=== PATIENT | male | born 2000 | race Caucasian/White ===

== ENCOUNTER 2022-06-06 17:25 | Inpatient (IN) | payer BC ==
[2022-06-06] MEDS ORDERED: Sodium Chloride 0.9% 1,000 ML IV ONE (17:31)
[2022-06-06] MEDS ORDERED: Sodium Chloride 0.9% 10 ML Syringe FLUSH PRN (17:31)
[2022-06-06] MEDS ORDERED: Cefepime 2 GM in Premix Bag 50 BAG IV ONE (17:31)
[2022-06-06] MEDS ORDERED: Sodium Chloride 0.9% 2.5 ML Syringe FLUSH PRN (17:31)
[2022-06-06] MEDS ORDERED: VANCOmycin 2 GM/400 ML 2 GM in Premix Bag 1 BAG IV ONE (18:00)
[2022-06-06] MEDS ORDERED: HYDROmorphone 1 MG/ML Syringe IVPUSH ONE (18:05)
[2022-06-06] MEDS ORDERED: Ketorolac 60 MG/2 ML SDV IM ONE (18:05)
[2022-06-06] MEDS ORDERED: Ondansetron 4 MG/2 ML SDV IVPUSH ONE (18:05)
[2022-06-06] MEDS ORDERED: Ketorolac 30 MG/ML SDV IVPUSH ONE (18:08)
[2022-06-06] MEDS ORDERED: Ketorolac 30 MG/ML SDV ONE (18:09)
[2022-06-06 18:38] LABS: CARBON DIOXIDE,CO2 21.4 mmol/L (21.0-32.0); POTASSIUM,K 3.5 mmol/L (3.5-5.1)
[2022-06-06 20:24] LABS: CORONAVIRUS COVID-19 NAA NEGATIVE (NEGATIVE); INFLUENZA A NAA NEGATIVE (NEGATIVE); INFLUENZA B NAA NEGATIVE (NEGATIVE)
[2022-06-06] MEDS: Acetaminophen 325 MG Tab PO PRN (22:49)
[2022-06-06] MEDS: oxyCODONE 5 MG Tab PO PRN (22:50)
[2022-06-06] MEDS: Piperacillin/Tazobactam 3.375 GM in Sodium Chloride 0.9% 50 ML IV SCH (22:55)
[2022-06-07] MEDS: Pregabalin 75 MG Cap PO SCH ×3 (00:24→20:00)
[2022-06-07] MEDS: Amitriptyline 25 MG Tab PO SCH ×2 (00:24→20:00)
[2022-06-07] MEDS: Oxybutynin 5 MG Tab PO SCH ×3 (00:25→20:00)
[2022-06-07] MEDS: Morphine 2 MG/ML SYRINGE IVPUSH PRN ×6 (00:25→19:50)
[2022-06-07] MEDS: Piperacillin/Tazobactam 3.375 GM in Sodium Chloride 0.9% 50 ML IV SCH ×4 (03:51→21:53)
[2022-06-07 06:31] LABS: CARBON DIOXIDE,CO2 21.6 mmol/L (21.0-32.0); POTASSIUM,K 3.7 mmol/L (3.5-5.1)
[2022-06-07] MEDS: Acetaminophen 325 MG Tab PO PRN ×2 (08:46→19:35)
[2022-06-07] MEDS: Ciprofloxacin/Dexamethasone 0.3-0.1% Otic Susp 7.5 ML Bottle EARLF SCH ×2 (11:37→20:01)
[2022-06-07] MEDS: Enoxaparin 40 MG/0.4 ML Syringe SUBCUT SCH (12:19)
[2022-06-07] MEDS ORDERED: Acetaminophen 500 MG Tab PO ONE (12:27)
[2022-06-08] MEDS: Acetaminophen 325 MG Tab PO PRN (02:11)
[2022-06-08] MEDS: oxyCODONE 5 MG Tab PO PRN (02:14)
[2022-06-08] MEDS: Piperacillin/Tazobactam 3.375 GM in Sodium Chloride 0.9% 50 ML IV SCH ×2 (03:59→10:30)
[2022-06-08 06:28] LABS: CARBON DIOXIDE,CO2 25.1 mmol/L (21.0-32.0); POTASSIUM,K 3.7 mmol/L (3.5-5.1)
[2022-06-08] MEDS ORDERED: Polyethylene Glycol 3350 Powder 17 GM Packet PO ONE (08:05)
[2022-06-08] MEDS: Ciprofloxacin/Dexamethasone 0.3-0.1% Otic Susp 7.5 ML Bottle EARLF SCH (08:40)
[2022-06-08] MEDS: Oxybutynin 5 MG Tab PO SCH (08:41)
[2022-06-08] MEDS: Pregabalin 75 MG Cap PO SCH (08:41)
[2022-06-08] MEDS: Enoxaparin 40 MG/0.4 ML Syringe SUBCUT SCH (10:38)
[2022-06-08] MEDS ORDERED: Acetaminophen/Codeine 300-30 MG Tab PO ONE (16:35)
== END 2022-06-08 18:44 | disposition home or self-care (01) | DRG 463 ==
LOC: MW.ED 17:25 → MW.MS 19:44 → OBSVTOIN 06-07 09:04 → MW.MS 06-07 12:23
PROVIDERS: ADMIT Internal Medicine; ATTEND Internal Medicine
DX: N13.6 Pyonephrosis (principal); N17.9 Acute kidney failure, unspecified; H92.02 Otalgia, left ear; G83.9 Paralytic syndrome, unspecified; N31.9 Neuromuscular dysfunction of bladder, unspecified; N18.9 Chronic kidney disease, unspecified; Z20.822 Contact with and (suspected) exposure to COVID-19; D63.1 Anemia in chronic kidney disease; N13.9 Obstructive and reflux uropathy, unspecified; Z87.891 Personal history of nicotine dependence; Z79.899 Other long term (current) drug therapy
CPT/HCPCS: 0240U; 36415; 51702; 70486; 70486-26; 71045; 71045-26; 74176; 74176-26; 80048; 80053; 80202; 81001; 83605; 85025; 87040; 87086; 87088; 87186; 93005; 97161-GP; A9270-GY; J0692; J1170; J1885; J2270; J2405; J2543; J3370; J3490; J7030; J7050

== ENCOUNTER 2022-06-09 10:45 | Emergency (ER) | payer BC | END 2022-06-09 12:50 | disposition home or self-care (01) | LOC: MW.ED 10:45 | DX: R32 Unspecified urinary incontinence (principal); N18.9 Chronic kidney disease, unspecified; Z79.899 Other long term (current) drug therapy | CPT/HCPCS: 51702; 99283 ==

== ENCOUNTER 2022-07-25 20:11 | Emergency (ER) | payer OTHER, BC ==
[2022-07-25] MEDS ORDERED: Acetaminophen 500 MG Tab PO ONE (20:30)
== END 2022-07-25 21:52 | disposition home or self-care (01) ==
LOC: MW.ED 20:11
DX: M54.2 Cervicalgia (principal); R51.9 Headache, unspecified; Z79.899 Other long term (current) drug therapy; V49.40XA Driver injured in collision with unspecified motor vehicles in traffic accident, initial encounter; Y92.410 Unspecified street and highway as the place of occurrence of the external cause
CPT/HCPCS: 70450; 72125; 99284; A9270

== ENCOUNTER 2022-09-19 17:11 | Emergency (ER) | payer OTHER, BC | END 2022-09-19 19:12 | disposition home or self-care (01) | LOC: MW.ED 17:11 | DX: S92.351A Displaced fracture of fifth metatarsal bone, right foot, initial encounter for closed fracture (principal); N18.9 Chronic kidney disease, unspecified; Z79.899 Other long term (current) drug therapy; W01.0XXA Fall on same level from slipping, tripping and stumbling without subsequent striking against object, initial encounter; Y92.89 Other specified places as the place of occurrence of the external cause; Y99.0 Civilian activity done for income or pay | CPT/HCPCS: 29515; 73610-26-RT; 73610-RT; 73630-26-RT; 73630-RT; 99283 ==

== ENCOUNTER 2023-10-16 19:26 | Emergency (ER) | payer BC ==
[2023-10-16] MEDS: Acetaminophen 325 MG Tab PO ONE (20:17)
[2023-10-16] MEDS: Ibuprofen 600 MG Tab PO ONE (20:17)
[2023-10-16 20:35] LABS: BASOPHILS ABSOLUTE AUTO 0.05 K/uL (0.00-0.20); BASOPHILS PERCENT AUTO 0.4 % (0.0-1.0); EOSINOPHILS ABSOLUTE AUTO 0.16 K/uL (0.00-0.45); EOSINOPHILS PERCENT AUTO 1.2 % (0.0-6.0); HEMOGLOBIN 12.2 g/dL (14.0-18.0); IMMATURE GRAN ABSOLUTE AUTO 0.07 K/uL (0.00-0.05); IMMATURE GRAN PERCENT AUTO 0.5 % (0.0-0.4); MEAN CORPUSCULAR HEMOGLOBIN 29.1 pg (28.0-32.0); MEAN CORPUSCULAR HGB CONC 34.9 g/dL (32.0-36.0); MEAN CORPUSCULAR VOLUME 83.5 fL (83.0-99.0); MEAN PLATELET VOLUME 12.1 fL (9.4-12.4); MONOCYTES ABSOLUTE AUTO 1.02 K/uL (0.00-0.80); MONOCYTES PERCENT AUTO 7.5 % (0.0-8.0); NEUTROPHILS ABSOLUTE AUTO 10.37 K/uL (1.80-7.70); NEUTROPHILS PERCENT AUTO 76.4 % (41.0-71.0); PLATELET COUNT,PLT 167 K/uL (150-400); RED BLOOD CELL COUNT 4.19 M/uL (4.52-5.90); WHITE BLOOD CELL COUNT,WBC 13.57 K/uL (3.9-11.3)
[2023-10-16 21:04] LABS: A/G RATIO 0.9 (0.9-1.6); ALBUMIN 3.6 g/dL (3.4-5.0); BILIRUBIN TOTAL 0.8 mg/dL (0.2-1.0); CALCIUM 9.3 mg/dL (8.5-10.1); CARBON DIOXIDE,CO2 24.5 mmol/L (21.0-32.0); CREATININE 1.6 mg/dL (0.8-1.3); EST CRCL DRUG DOSING (CG) 82.06 mL/min; PROTEIN TOTAL,TP 7.5 g/dL (6.4-8.2)
[2023-10-16 21:08] LABS: LACTIC ACID 0.9 mmol/L (0.4-2.0)
[2023-10-16 21:19] LABS: CORONAVIRUS COVID-19 NAA NEGATIVE (NEGATIVE); INFLUENZA A NAA NEGATIVE (NEGATIVE); INFLUENZA B NAA NEGATIVE (NEGATIVE); RESPIRATORY SYNCYTIAL VIR NAA NEGATIVE (NEGATIVE)
[2023-10-16 21:55] LABS: APPEARANCE,URINE CLOUDY; BILIRUBIN,URINE NEGATIVE (NEGATIVE); COLOR,URINE YELLOW; GLUCOSE,URINE NEGATIVE (NEGATIVE); KETONES,URINE NEGATIVE (NEGATIVE); LEUKOCYTE ESTERASE,URINE MODERATE (NEGATIVE); NITRITE,URINE POSITIVE (NEGATIVE); OCCULT BLOOD,URINE LARGE (NEGATIVE); PROTEIN,URINE 100 mg/dL (NEGATIVE); UROBILINOGEN,URINE 0.2 EU/dL (<2.0)
[2023-10-16 22:03] LABS: BACTERIA,URINE 1+ (NEGATIVE); EPITHELIAL CELLS,URINE RARE (NONE-FEW); WBC,URINE TO NUMEROUS TO COUNT (0-5/HPF)
[2023-10-16] MEDS: cefTRIAXone 500 MG in Sodium Chloride 0.9% 50 ML IV ONE (23:01)
[2023-10-16] MEDS: Sodium Chloride 0.9% 1,000 ML IV STA (23:02)
== END 2023-10-17 00:07 | disposition home or self-care (01) ==
LOC: MW.ED 19:26
DX: N39.0 Urinary tract infection, site not specified (principal); I10 Essential (primary) hypertension; Z79.899 Other long term (current) drug therapy; Z75.8 Other problems related to medical facilities and other health care
CPT/HCPCS: 0241U; 36415; 51702; 70450; 80053; 81001; 83605; 85025; 87040; 96365; 99284; A9270; J0696; J3490; J7030; 99283